=== PATIENT | female | born 2000 | race Two or more races ===

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

== ENCOUNTER 2020-12-11 12:01 | Emergency (ER) | payer MEDICAID ==
[~2020-12-11] VITALS: Ht 152.4 cm; Wt 61.2 kg
[2020-12-11 12:03] VITALS: BP 129/90
[2020-12-11] MEDS ORDERED: LIDOCAINE VISCOUS 2% 15ML UD PO ONE (12:30)
== END 2020-12-11 12:46 | disposition home or self-care (01) ==
LOC: ER 12:01
DX: T17.208A Unspecified foreign body in pharynx causing other injury, initial encounter (principal); X58.XXXA Exposure to other specified factors, initial encounter; Y93.89 Activity, other specified; Y92.89 Other specified places as the place of occurrence of the external cause; Y99.8 Other external cause status
CPT/HCPCS: 42809